=== PATIENT | female | born 1990 | race African-American/Black ===

== ENCOUNTER 2022-01-05 16:49 | Emergency (ER) | payer OTHER ==
[~2022-01-05] VITALS: Ht 165.1 cm; Wt 50.3 kg
[2022-01-05 17:08] VITALS: BP 125/99
--- NOTE | 2022-01-05 17:10 | NUR ---
The patient bibs for "slicing cauliflower accidentlly cut left index finger". Will continue to monitor the patient.
[2022-01-05] MEDS ORDERED: IBUPROFEN 600 MG TABLET PO ONE (17:30)
[2022-01-05] MEDS ORDERED: IBUPROFEN 600 MG TABLET ONE (17:42)
[2022-01-05] MEDS ORDERED: CEPH500C2 PO (18:03)
--- NOTE | 2022-01-05 18:22 | NUR ---
Patient discharged to home in stable condition. Written and verbal after care instructions given. Patient verbalizes understanding of instruction.
== END 2022-01-05 18:22 | disposition home or self-care (01) ==
LOC: ER 17:20
DX: S61.211A Laceration without foreign body of left index finger without damage to nail, initial encounter (principal); W26.0XXA Contact with knife, initial encounter; Y93.G3 Activity, cooking and baking; Y92.89 Other specified places as the place of occurrence of the external cause; Y99.8 Other external cause status
CPT/HCPCS: 99283; A6403

== ENCOUNTER 2022-05-12 08:38 | Emergency (ER) | payer OTHER ==
[~2022-05-12] VITALS: Ht 167.6 cm; Wt 50.3 kg
[~2022-05-12 08:38] MED LIST: CEPH500C2 PO
--- NOTE | 2022-05-12 08:53 | NUR ---
BIB C/O ABDOMINAL PAIN, NAUSEA, VOMITING, DIARRHEA X5DAYS, STARTED TAKING CBD GUMMIES A MONTH AGO FOR BACK PAIN. PAIN IS 8/10 ON PAIN SCALE LOCATED ON LOWER ABDOMINAL REGION. DENIES ANY BURNING WHILE URINATED. VITALS ARE WITHIN NORMAL LIMITS. WARM BLAKNET PROVIDED FOR COMFORT. AWAITING MD HINOJOSA.
--- NOTE | 2022-05-12 08:55 | NUR ---
URINE COLLECTED AND SENT
--- NOTE | 2022-05-12 08:57 | NUR ---
IV ESTBALISHED L AC 20G. LABS DRAWN AND SENT.
--- NOTE | 2022-05-12 09:00 | NUR ---
DR KEVIN AT BEDSIDE FOR EVAL.
[2022-05-12] MEDS ORDERED: FAMOTIDINE/PF INJ 20 MG/2 ML VIAL IV ONE ×2 (09:30→09:34)
[2022-05-12] MEDS ORDERED: ONDANSETRON HCL/PF 4 MG/2 ML VIAL ONE (09:34)
[2022-05-12 09:35] LABS: BASOPHILS # (AUTO) 0.1 K/uL (0.0-0.2); BASOPHILS % (AUTO) 0.5 % (0.0-2.0); EOSINOPHILS % (AUTO) 0.2 % (0.0-6.0); HEMATOCRIT 39 % (33-45); HEMOGLOBIN 12.4 g/dL (11.5-14.8); LYMPHOCYTES # (AUTO) 1.1 K/uL (0.8-4.8); MEAN CORPUSCULAR HGB CONC 32 g/dl (31.0-36.0); MEAN CORPUSCULAR VOLUME 82 fL (82-100); MONOCYTES # (AUTO) 0.3 K/uL (0.1-1.30); MONOCYTES % (AUTO) 3.3 % (2.0-12.0); NEUTROPHILS # (AUTO) 8.5 K/uL (1.8-8.9); PLATELET COUNT (AUTO) 186 K/uL (150-450); RED BLOOD CELL COUNT(AUTO) 4.76 MIL/uL (4.0-5.2)
[2022-05-12 09:40] LABS: CALCIUM, SERUM 8.9 mg/dL (8.5-10.1); POTASSIUM 3.1 mmol/L (3.5-5.1)
[2022-05-12 09:47] LABS: ALBUMIN 4.6 g/dL (3.4-5.0); BILIRUBIN,DIRECT 0.2 mg/dL (0.0-0.2); BILIRUBIN,TOTAL 0.8 mg/dL (0.2-1.0)
[2022-05-12 09:52] LABS: BILIRUBIN,URINE SMALL (NEGATIVE); COLOR,URINE YELLOW (YELLOW); LEUKOCYTE ESTERASE ,URINE NEGATIVE (NEGATIVE); NITRITE, URINE NEGATIVE (NEGATIVE); PH,URINE 5.5 (5.0-8.0); PROTEIN,URINE 30 mg/dl (NEGATIVE); UGLUCOSE NEGATIVE (NEGATIVE); UROBILINOGEN,URINE 0.2 EU/dL (0.2)
[2022-05-12] MEDS ORDERED: ONDANSETRON HCL/PF - ER 4 MG/2 ML VIAL IV ONE (10:00)
[2022-05-12 10:30] LABS: BACTERIA,URINE Moderate /HPF (None Seen); SQUAMOUS EPITHELIAL CELL,UR Many /HPF (None Seen)
--- NOTE | 2022-05-12 10:49 | NUR ---
PT TAKEN TO CT VIA KATYA
[2022-05-12] MEDS ORDERED: IOHEXOL-300 100 ML VIAL IV ONE (10:52)
[2022-05-12] MEDS ORDERED: ONDA4TAB5 PO (12:32)
--- NOTE | 2022-05-12 13:11 | NUR ---
IV removed. Catheter intact and site benign. Pressure and 4x4 applied to site. No bleeding noted.Patient discharged to home in stable condition. Written and verbal after care instructions given. Patient verbalizes understanding of instruction.
[2022-05-12 13:12] VITALS: BP 123/74
== END 2022-05-12 13:12 | disposition home or self-care (01) ==
LOC: ER 08:40
DX: K52.9 Noninfective gastroenteritis and colitis, unspecified (principal)
CPT/HCPCS: 99285; 74177; 96374; 96375; 85025; 80048; 87086; 83690; 80076; 84703; 81001; 36415; J3490; J2405 ×2; Q9967